=== PATIENT | male | born 1970 ===

== ENCOUNTER 2019-03-24 06:55 | Emergency (ER) | payer OTHER, SELFPAY ==
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
[2019-03-24 07:19] LABS: Add Manual Diff / Slide Review NO; Basophils Absolute Auto 0 /uL (0-100); Basophils Percent Auto 0.3 % (0-2); Eosinophils Absolute Auto 0 /uL (0-450); Eosinophils Percent Auto 0.1 % (2-4); Hematocrit 37.7 % (41-53); Hemoglobin 12.6 g/dL (13.5-17.5); Lymphocytes Absolute Auto 3000 /uL (1100-4500); Lymphocytes Percent Auto 30.4 % (25-40); Mean Corpuscular HGB Conc 33.4 % (30-36); Mean Corpuscular Hemoglobin 31.1 PG (26-34); Mean Corpuscular Volume 93.2 fL (80-100); Monocytes Absolute Auto 300 /uL (0-900); Monocytes Percent Auto 3.6 % (3-14); Neutrophils Absolute Auto 6400 /uL (1500-7000); Neutrophils Percent Auto 65.6 % (50-75); Platelet Count 245 X10^3/uL (150-400); Red Blood Cell Count 4.04 X10^6/uL (4.5-5.9); Red Cell Distribution Width 13.8 % (11.6-14.8); White Blood Cell Count 9.7 X10^3/uL (4.5-11.0)
[2019-03-24 07:25] LABS: INR 1.4 (0.9-1.3); Prothrombin Time 16.4 SECONDS (10.1-12.7)
[2019-03-24 07:27] LABS: PTT Partial Thromboplastin Tim 70 SECONDS (26.4-36.2)
[2019-03-24 07:30] LABS: Alanine Aminotransferase 40 IU/L (21-72); Albumin 3.6 g/dL (3.5-5.0); Albumin Globulin Ratio 1.6 (1.0-2.8); Alkaline Phosphatase 68 U/L (38-126); Aspartate Aminotransferase 64 IU/L (17-59); BUN Creatinine Ratio 16.7 (6-22); Bilirubin Total 0.7 mg/dL (0.2-1.3); Blood Urea Nitrogen 15 mg/dL (9-20); Calcium 8.4 mg/dL (8.4-10.2); Carbon Dioxide 23 mmol/L (22-32); Chloride 104 mmol/L (98-107); Creatine Kinase 663 U/L (55-170); Estimated Glomerular Filt Rate > 60.0 mL/min (>60); Ethanol (ETOH) < 10 mg/dL; Globulin 2.2 g/dL (1.7-4.1); Glucose 142 mg/dL (80-110); Lipase 328 U/L (23-300); Potassium 3.7 mmol/L (3.4-5.1); Sodium 138 mmol/L (137-145); Total Protein 5.8 g/dL (6.3-8.2)
[2019-03-24 07:40] LABS: Troponin I < 0.012 ng/mL (0.01-0.034)
[2019-03-24 07:45] LABS: CKMB % Relative Index 0.5 % (1.5-5.0); Creatine Kinase MB 3.49 ng/mL (<2.37); HEMOLYSIS 29 (0-50)
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
[2019-03-24 08:22] VITALS: O2SAT 90
[2019-03-24 09:14] LABS: Alanine Aminotransferase 45 IU/L (21-72)
[2019-03-24 09:48] LABS: Hepatitis B Surface Antigen NEGATIVE s/c (NEGATIVE)
[2019-03-24 10:06] LABS: HIV 1 & 2 Ab/Ag 4th Gen Combo NEGATIVE (NEGATIVE); Hep C Virus Ab w/Reflex Quant NEGATIVE s/c (NEGATIVE)
--- NOTE | 2019-03-24 10:16 | PC.NURSE ---
Dep Thermodynamics Engineer here to take patient to [facility].
[2019-03-26 15:03] LABS: Hepatitis B Surf Ab Qualitativ Nonreactive (Nonreactive)
== END 2019-03-24 10:37 | disposition expired ==
LOC: ED 10:36
PROVIDERS: Emergency Provider Emergency Medicine
DX: S01.93XA Puncture wound without foreign body of unspecified part of head, initial encounter (principal)
CPT/HCPCS: 31500; 36415; 71045; 80053; 80320; 82550; 82553; 83690; 84460; 84484; 85025; 85610; 85730; 86706; 86803; 86850; 86900; 86901; 87340; 87389; 92950; 94770; 99281; 99291